=== PATIENT | female | born 1955 ===

== ENCOUNTER 2017-03-09 16:27 | Emergency (ER) | payer OTHER ==
[2017-03-09 16:32] VITALS: O2SAT 100
[2017-03-09 16:34] VITALS: BMI 32.5
[2017-03-09] MEDS ORDERED: Sodium Chloride 0.9% 1,000 ML IV ONE (16:38)
[2017-03-09] MEDS ORDERED: Sodium Chloride 0.9% 1,000 ML ONE (16:46)
[2017-03-09 16:49] LABS: BASO % 0.6 % (0.0-2.0); EOS # 0.1 K/uL (0.0-0.7); EOS % 1.2 % (0.0-4.0); HEMATOCRIT 33.8 % (34.0-47.0); LYMPH % 26.8 % (20.0-40.0); MEAN CELL VOLUME 86.7 fL (81.0-99.0); MEAN CORPUSCULAR HEMOGLOBIN 29.4 pg (27.0-31.0); MEAN CORPUSCULAR HGB CONC 33.9 g/dL (33.0-37.0); MEAN PLATELET VOLUME 9.4 fL (7.2-11.7); MONO # 0.8 K/uL (0.0-0.8); MONO % 10.5 % (0.0-10.0); NRBC % 0.1 % (0.0-2.0); RED CELL DISTRIBUTION WIDTH 13.5 % (11.5-14.5); WHITE BLOOD COUNT 7.3 K/uL (4.8-10.8)
[2017-03-09 16:58] LABS: CHLORIDE 97 mmol/L (98-107); SODIUM 132 mmol/L (132-148)
[2017-03-09 17:00] LABS: GFR AFRICAN-AMERICAN > 60; POTASSIUM 4.2 mmol/L (3.6-5.2)
--- NOTE | 2017-03-09 17:00 | RAD ---
HISTORY: SOB COMPARISON: Chest x-ray performed 10/06/15 TECHNIQUE: Chest PA and lateral FINDINGS: LUNGS: Biapical pleural thickening. No focal consolidation. Please note that chest x-ray has limited sensitivity for the detection of pulmonary masses. PLEURA: No significant pleural effusion identified. No definite pneumothorax . CARDIOVASCULAR: Heart size appears within normal limits. OSSEOUS STRUCTURES: Left shoulder arthroplasty. Degenerative changes of the spine. VISUALIZED UPPER ABDOMEN: Unremarkable. OTHER FINDINGS: None. IMPRESSION: Biapical pleural thickening. Left shoulder arthroplasty.
[2017-03-09 17:01] LABS: ALB/GLOB RATIO 1.1 (1.0-2.1); ALKALINE PHOSPHATASE 46 U/L (38-126); ALT/SGPT 36 U/L (9-52); AST/SGOT 30 U/L (14-36); BILIRUBIN,TOTAL 0.6 mg/dL (0.2-1.3); BLOOD UREA NITROGEN 22 mg/dL (7-17); CALCIUM 9.4 mg/dl (8.6-10.4); CARBON DIOXIDE 25 mmol/L (22-30); GLUCOSE,RANDOM 86 mg/dL (65-105); TOTAL PROTEIN 8.2 g/dL (6.3-8.3)
[2017-03-09] MEDS ORDERED: Iodixanol 320 MG/ML 100 ML BOTTLE IV ONE (17:01)
--- NOTE | 2017-03-09 17:15 | C.PDOC ---
History Of Present Illness 61 y/o female with PMHx of HTN and DM presents to ED with complaints of new onset headache earlier today. Patient reports she checked her blood pressure at home and it was elevated. Patient also reports having occasional mild chest pain and today headache and tongue numbness. Patient denies fever, chills, photophobia, dizziness, weakness, injury or any other complaints at this time. PMD Dr. Mathew Time Seen by Provider: 03/09/17 16:30 Chief Complaint (Nursing): Headache History Per: Patient History/Exam Limitations: no limitations Onset/Duration Of Symptoms: Hrs Current Symptoms Are (Timing): Still Present Severity: Mild Quality: "Pain" Recent travel outside of the [place]: No Past Medical History Reviewed: Historical Data, Nursing Documentation, Vital Signs Vital Signs: Last Vital Signs Temp 97.2 F L 03/09/17 16:34 Pulse 58 L 03/09/17 18:01 Resp 20 03/09/17 18:01 BP 148/65 03/09/17 18:01 Pulse Ox 100 03/09/17 18:33 - Medical History PMH: Diabetes, Gall Bladder Disease, HTN Surgical History: Cholecystectomy - [facility] Procedures EXCISION OF LEFT SHOULDER JOINT, OPEN APPROACH (10/23/15) REATTACHMENT OF LEFT SHOULDER TENDON, OPEN APPROACH (10/23/15) REPAIR LEFT SHOULDER TENDON, OPEN APPROACH (10/23/15) REPLACEMENT OF L SHOULDER JT WITH SYNTH SUB, OPEN APPROACH (10/23/15) Family History: States: No Known Family Hx - Social History Hx Alcohol Use: No Hx Substance Use: No - Immunization History Hx Tetanus Toxoid Vaccination: No Hx Influenza Vaccination: No Hx Pneumococcal Vaccination: No Review Of Systems Constitutional: Negative for: Fever, Chills Eyes: Negative for: Vision Change Gastrointestinal: Negative for: Nausea, Vomiting Skin: Negative for: Rash Neurological: Positive for: Numbness, Headache. 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 No focal consolidation. Please note that chest x-ray has limited sensitivity for the detection of pulmonary masses. PLEURA: No significant pleural effusion identified. No definite pneumothorax . CARDIOVASCULAR: Heart size appears within normal limits. OSSEOUS STRUCTURES: Left shoulder arthroplasty. Degenerative changes of the spine. VISUALIZED UPPER ABDOMEN: Unremarkable. OTHER FINDINGS: None. IMPRESSION: Biapical pleural thickening. Left shoulder arthroplasty. - CT Scan/US No standard instances Other Rad Studies (CT/US): Read By Radiologist, Radiology Report Reviewed CT/US Interpretation: FINDINGS: HEMORRHAGE: No intracranial hemorrhage. BRAIN : Guzman-white matter differentiation is preserved. There is no mass, mass effect or abnormal extra-axial fluid collection. VENTRICLES: The ventricles are normal in size, shape and configuration. CALVARIUM: There is no calvarial fracture or extracranial soft tissue swelling. PARANASAL SINUSES: Predominantly clear. MASTOID AIR CELLS: Predominantly clear. OTHER FINDINGS: None. IMPRESSION: No acute intracranial abnormality. Progress Note: Patient treated with IVF NSS, reglan and tylenol. On re- evaluation lungs clear, neuro intact, ambulating with steady gait. in no distress Reassessment Condition: Improved Medical Decision Making Medical Decision Making: Plan: CT scan, Blood work, UA, IV fluids Disposition Counseled Patient/Family Regarding: Studies Performed, Diagnosis, Need For Followup, Rx Given - Disposition Referrals: Carlton Mathew MD, PhD [Staff Provider] - Disposition: HOME/ ROUTINE Disposition Time: 18:45 Condition: STABLE Additional Instructions: Follow up with PMD for further evaluation Return to ED if any increase symptoms Instructions: Acute Headache (ED) Forms: [facility] (Japanese) - POA Present On Arrival: None - Clinical Impression Clinical Impression: Headache - PA / 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 - Scribe Statement The provider has reviewed the documentation as recorded by the Lakeshiaibeleni Null All medical record entries made by the Vincenzo were at my direction and personally dictated by me. I have reviewed the chart and agree that the record accurately reflects my personal performance of the history, physical exam, medical decision making, and the department course for this patient. I have also personally directed, reviewed, and agree with the discharge instructions and disposition.
--- NOTE | 2017-03-09 17:39 | CT ---
PROCEDURE: CT HEAD WITHOUT CONTRAST. HISTORY: R/O Bleed COMPARISON: None available. TECHNIQUE: Axial computed tomography images were obtained through the head/brain without intravenous contrast. Radiation dose: Total exam DLP = 677.90 mGy-cm. This CT exam was performed using one or more of the following dose reduction techniques: Automated exposure control, adjustment of the mA and/or kV according to patient size, and/or use of iterative reconstruction technique. FINDINGS: HEMORRHAGE: No intracranial hemorrhage. BRAIN: Guzman-white matter differentiation is preserved. There is no mass, mass effect or abnormal extra-axial fluid collection. VENTRICLES: The ventricles are normal in size, shape and configuration. CALVARIUM: There is no calvarial fracture or extracranial soft tissue swelling. PARANASAL SINUSES: Predominantly clear. MASTOID AIR CELLS: Predominantly clear. OTHER FINDINGS: None. IMPRESSION: No acute intracranial abnormality.
[2017-03-09 18:53] VITALS: BP 138/56; PULSE 60; RESP 18; TEMP 97.5
--- NOTE | 2017-03-10 23:15 | CARD ---
APPROVED REPORT EKG Measurement Heart [id number] <Conclusion> Sinus bradycardia with 1st degree AV block Otherwise normal ECG
== END 2017-03-09 18:53 | disposition home or self-care (01) ==
LOC: C.ER 16:27
DX: R51 Headache (principal)
CPT/HCPCS: 70450; 71020; 80053; 82553; 82948; 84484; 85025; 93005; 96374; 99285; J2765; J7040; Q9967

== ENCOUNTER 2018-08-30 09:37 | Day surgery (SDC) | payer OTHER ==
[2018-08-29 09:34] VITALS: BMI 31.6
[~2018-08-30 09:37] MED LIST: Lactated Ringer's 500 ML IV SCH
[2018-08-30 10:19] VITALS: O2SAT 100
[2018-08-30] MEDS ORDERED: Propofol 10 mg/ml Inj (20 ML) ONE (11:47)
[2018-08-30 13:06] VITALS: TEMP 97.5
[2018-08-30 14:13] VITALS: BP 131/67; PULSE 60; RESP 12
== END 2018-08-30 14:10 | disposition home or self-care (01) ==
LOC: C.ENDO 09:37
PROVIDERS: ATTEND Internal Medicine Gastroenterology
DX: K29.50 Unspecified chronic gastritis without bleeding (principal); R10.13 Epigastric pain; K57.10 Diverticulosis of small intestine without perforation or abscess without bleeding; B96.81 Helicobacter pylori [H. pylori] as the cause of diseases classified elsewhere
CPT/HCPCS: 43239; 82948; 88305; 88342; J2001; J2704; J3010; J7120